=== PATIENT | female | born 1955 | race Caucasian/White ===

== ENCOUNTER → 2018-08-05 14:37 | Outpatient (CLI) | payer OTHER, SELFPAY ==
--- NOTE | 2018-08-05 | DI.MG.S_ITS ---
BILATERAL DIGITAL SCREENING MAMMOGRAM 3D/2D WITH CAD: 08/05/2018 CLINICAL: Routine screening. Family history of breast cancer. Comparison is made to exams dated: 10/16/2016 mammogram, 08/18/2015 mammogram, and 05/26/2014 mammogram - [facility]. There are scattered fibroglandular elements in both breasts. Current study was also evaluated with a Computer Aided Detection (CAD) system. There is a benign biopsy clip in the left breast. No significant masses, calcifications, or other findings are seen in either breast. There has been no significant interval change. IMPRESSION: NEGATIVE There is no mammographic evidence of malignancy. A 1 year screening mammogram is recommended. This exam was interpreted at Station ID: [id number]. NOTE: For mammograms, a report in lay terms will be sent to the patient. Approximately 15% of breast malignancies will not be visualized mammographically. In the management of a palpable breast mass, a negative mammogram must not discourage biopsy of a clinically suspicious lesion. Electronically Signed By: Kadeem valencia/joanna:08/05/2018 17:03:35 letter sent: Normal Exam ACR BI-RADS Category 1: Negative 3341F
== END ==
PROVIDERS: PCP Family Medicine; Visit Provider Family Medicine
DX: Z12.31 Encounter for screening mammogram for malignant neoplasm of breast (principal); Z80.3 Family history of malignant neoplasm of breast; Z78.0 Asymptomatic menopausal state; Z87.891 Personal history of nicotine dependence
CPT/HCPCS: 77063; 77067; 77080

== ENCOUNTER → 2018-08-20 15:52 | Outpatient (CLI) | payer OTHER, SELFPAY ==
--- NOTE | 2018-08-20 | DI.RAD.S_ITS ---
PROCEDURE: XR LUMBAR SPINE 2-3V INDICATIONS: LOW BACK PAIN TECHNIQUE: 3 views of the lumbar spine were acquired. COMPARISON: [facility], , L-SPINE 2-3 VIEWS, 02/23/2010, 15:18. FINDINGS: Bones: 5 [id number] vertebrae are present. There is trace retrolisthesis of L2 on L3, L3 on L4, grade 1 anterolisthesis of L5 on S1. This is progressive compared to prior exam at L4-5. Moderate disc and foraminal narrowing are noted at L5-S1, mildly progressive compared to prior exam. No vertebral body compression fractures. No suspicious bony lesions. Soft tissues: Overlying bowel gas pattern is normal. No suspicious soft tissue calcifications. IMPRESSION: Degenerative changes most prominent at L5-S1 with increased anterolisthesis at L4-5. Dictated by: Luli Alcazar M.D. on 08/20/2018 at 17:20 Approved by: Luli Alcazar M.D. on 08/20/2018 at 17:21
--- NOTE | 2018-08-20 | DI.RAD.S_ITS ---
PROCEDURE: XR KNEE LT 3V INDICATIONS: CATHY KNEE PAIN TECHNIQUE: 3 views of the knee were acquired. COMPARISON: [facility], , KNEE 3V RIGHT, 10/29/2007, 15:13. FINDINGS: Bones: No fractures or dislocations. No suspicious bony lesions. Mild medial minimal patellofemoral compartment narrowing. No erosions. Soft tissues: Minimal joint effusion. No suspicious soft tissue calcifications. IMPRESSION: Minimal to mild medial patellofemoral compartment narrowing suggesting early osteoarthritis. Minimal interval change. Dictated by: Luli Alcazar M.D. on 08/20/2018 at 17:19 Approved by: Luli Alcazar M.D. on 08/20/2018 at 17:20
--- NOTE | 2018-08-20 | DI.RAD.S_ITS ---
PROCEDURE: XR KNEE RT 3V INDICATIONS: right knee pain TECHNIQUE: 3 views of the knee were acquired. COMPARISON: [facility], , KNEE 3V RIGHT, 10/29/2007, 15:13. FINDINGS: Bones: No fractures or dislocations. No suspicious bony lesions. There is minimal medial patellofemoral compartment narrowing, minimally progressive compared to prior exam. No erosions. Soft tissues: No joint effusion. No suspicious soft tissue calcifications. IMPRESSION: Minimal early degenerative change of the medial patellofemoral compartments as above. Dictated by: Luli Alcazar M.D. on 08/20/2018 at 17:21 Approved by: Luli Alcazar M.D. on 08/20/2018 at 17:22
== END ==
PROVIDERS: PCP Family Medicine; Visit Provider Family Medicine
DX: M54.5 Low back pain (principal); M25.562 Pain in left knee; M25.561 Pain in right knee; M47.817 Spondylosis without myelopathy or radiculopathy, lumbosacral region; M43.16 Spondylolisthesis, lumbar region
CPT/HCPCS: 72100; 73562

== ENCOUNTER → 2020-11-10 14:35 | Outpatient (CLI) | payer OTHER, SELFPAY ==
--- NOTE | 2020-11-10 | DI.MG.S_ITS ---
BILATERAL DIGITAL SCREENING MAMMOGRAM 3D/2D WITH CAD: 11/10/2020 CLINICAL: Routine screening. Family history of breast cancer. Comparison is made to exams dated: 08/05/2018 mammogram, 10/16/2016 mammogram, and 08/18/2015 mammogram - [facility]. There are scattered fibroglandular elements in both breasts. Current study was also evaluated with a Computer Aided Detection (CAD) system. There is a biopsy clip in the left breast. No significant masses, calcifications, or other findings are seen in either breast. There has been no significant interval change. IMPRESSION: NEGATIVE There is no mammographic evidence of malignancy. A 1 year screening mammogram is recommended. This exam was interpreted at Station ID: [id number]. NOTE: For mammograms, a report in lay terms will be sent to the patient. Approximately 15% of breast malignancies will not be visualized mammographically. In the management of a palpable breast mass, a negative mammogram must not discourage biopsy of a clinically suspicious lesion. Electronically Signed By: Devaughn Fraga M.D., jr/joanna:11/10/2020 16:15:40 letter sent: Normal Exam ACR BI-RADS Category 1: Negative 3341F
== END ==
PROVIDERS: PCP Family Medicine; Referring Provider Family Medicine; Visit Provider Family Medicine
DX: Z12.31 Encounter for screening mammogram for malignant neoplasm of breast (principal); Z80.3 Family history of malignant neoplasm of breast
CPT/HCPCS: 77063; 77067

== ENCOUNTER → 2022-02-23 09:22 | Outpatient (CLI) | payer OTHER, SELFPAY ==
--- NOTE | 2022-02-23 | DI.MG.S_ITS ---
BILATERAL DIGITAL SCREENING MAMMOGRAM 3D/2D WITH CAD: 02/23/2022 CLINICAL: Routine screening. Family history of breast cancer. Comparison is made to exams dated: 11/10/2020 mammogram, 08/05/2018 mammogram, 10/16/2016 mammogram, and 08/18/2015 mammogram - [facility]. There are scattered areas of fibroglandular density in both breasts (category b / 25%-50% glandular tissue). Current study was also evaluated with a Computer Aided Detection (CAD) system. There is a biopsy clip in the left breast. No significant masses, calcifications, or other findings are seen in either breast. There has been no significant interval change. IMPRESSION: NEGATIVE There is no mammographic evidence of malignancy. A 1 year screening mammogram is recommended. Based on the Tyrer Cuzick model (a risk assessment model) the patient's lifetime risk is 14.5% and her 10 year risk is 7.8%. According to the ACR, ACS, and NCCN guidelines, an annual breast MRI exam along with mammogram is recommended if the patient's lifetime risk is 20% or greater. This exam was interpreted at Station ID: [id number]. NOTE: For mammograms, a report in lay terms will be sent to the patient. Approximately 15% of breast malignancies will not be visualized mammographically. In the management of a palpable breast mass, a negative mammogram must not discourage biopsy of a clinically suspicious lesion. Electronically Signed By: Christiano paulino/joanna:02/23/2022 09:41:29 letter sent: Normal Exam ACR BI-RADS Category 1: Negative 3341F
== END ==
PROVIDERS: PCP Family Medicine; Referring Provider Family Medicine; Visit Provider Family Medicine
DX: Z12.31 Encounter for screening mammogram for malignant neoplasm of breast (principal); Z78.0 Asymptomatic menopausal state; Z80.3 Family history of malignant neoplasm of breast; Z13.820 Encounter for screening for osteoporosis
CPT/HCPCS: 77063; 77067; 77080

== ENCOUNTER → 2023-03-05 10:07 | Outpatient (CLI) | payer OTHER, SELFPAY ==
--- NOTE | 2023-03-05 | DI.RAD.S_ITS ---
PROCEDURE: XR CHEST 2V INDICATIONS: ACUTE COUGH TECHNIQUE: 2 views of the chest were acquired. COMPARISON: [facility], , CHEST 2 VIEW, 06/24/2013, 14:10. FINDINGS: Surgical changes and devices: None. Lungs and pleura: Bibasilar atelectasis and infiltrate is greater on the left Mediastinum: Mediastinal contours are normal. Heart size is normal. Bones and chest wall: No suspicious bony abnormalities. Soft tissues appear unremarkable. IMPRESSION: Minimal bibasilar atelectasis and or infiltrate, greater on the left Approved by: Marcial Morales M.D. on 03/05/2023 at 19:42
[2023-03-05 13:35] LABS: COVID-19 CEPHEID 4-PLEX PCR Negative (Negative); Influenza A - CEPHEID Flu A NEGATIVE (NEGATIVE); Influenza B - CEPHEID Flu B NEGATIVE (NEGATIVE); Respiratory Syncytial Virus Negative (Negative)
== END ==
PROVIDERS: PCP Family Medicine; Referring Provider Family Medicine; Visit Provider Family Medicine
DX: R05.1 Acute cough (principal)
CPT/HCPCS: 0241U; 71046

== ENCOUNTER → 2023-04-06 10:01 | Outpatient (CLI) | payer OTHER, SELFPAY ==
--- NOTE | 2023-04-06 10:03 | DI.RAD.S_ITS ---
PROCEDURE: XR CHEST 2V INDICATIONS: COUGH TECHNIQUE: 2 views of the chest were acquired. COMPARISON: None available at time of dictation FINDINGS: Surgical changes and devices: None. Lungs and pleura: Lungs are clear. No pleural effusions or pneumothorax. Mediastinum: Mediastinal contours are normal. Heart size is normal. Bones and chest wall: No suspicious bony abnormalities. Soft tissues appear unremarkable. IMPRESSION: No acute cardiopulmonary abnormality is seen. Dictated by: Dion Cummings M.D. on 04/06/2023 at 12:33 Approved by: Dion Cummings M.D. on 04/06/2023 at 12:34
--- NOTE | 2023-04-06 10:03 | DI.MG.S_ITS ---
BILATERAL DIGITAL SCREENING MAMMOGRAM 3D/2D WITH CAD: 04/06/2023 CLINICAL: Routine screening. Family history of breast cancer. Comparison is made to exams dated: 02/23/2022 mammogram, 11/10/2020 mammogram, and 08/05/2018 mammogram - [facility]. There are scattered areas of fibroglandular density in both breasts (category b / 25%-50% glandular tissue). Current study was also evaluated with a Computer Aided Detection (CAD) system. There is a biopsy clip in the left breast. No significant masses, calcifications, or other findings are seen in either breast. There has been no significant interval change. IMPRESSION: NEGATIVE There is no mammographic evidence of malignancy. A 1 year screening mammogram is recommended. Based on the Tyrer Cuzick model (a risk assessment model) the patient's lifetime risk is 13.7% and her 10 year risk is 7.7%. According to the ACR, ACS, and NCCN guidelines, an annual breast MRI exam along with mammogram is recommended if the patient's lifetime risk is 20% or greater. This exam was interpreted at Station ID: [id number]. NOTE: For mammograms, a report in lay terms will be sent to the patient. Approximately 15% of breast malignancies will not be visualized mammographically. In the management of a palpable breast mass, a negative mammogram must not discourage biopsy of a clinically suspicious lesion. Electronically Signed By: Kadeem valencia/joanna:04/06/2023 17:47:42 letter sent: Normal Exam ACR BI-RADS Category 1: Negative 3341F
== END ==
LOC: MAMMO 10:02
PROVIDERS: PCP Family Medicine; Referring Provider Family Medicine; Visit Provider Family Medicine
DX: Z12.31 Encounter for screening mammogram for malignant neoplasm of breast (principal); Z80.3 Family history of malignant neoplasm of breast; R92.323 Mammographic fibroglandular density, bilateral breasts; J18.9 Pneumonia, unspecified organism; M30.1 Polyarteritis with lung involvement [Churg-Strauss]; D72.18 Eosinophilia in diseases classified elsewhere; R05.1 Acute cough
CPT/HCPCS: 71046; 77063; 77067

== ENCOUNTER → 2023-10-02 14:00 | Outpatient (CLI) | payer OTHER, SELFPAY ==
[2023-10-02 14:32] LABS: Estimated Glomerular Filt Rate > 60 mL/min (>60)
--- NOTE | 2023-10-02 16:00 | DI.CT.S_ITS ---
PROCEDURE: CT CHEST W CON INDICATIONS: Eosinophilia in diseases classified elsewhere TECHNIQUE: After the administration of intravenous contrast, 5 mm thick sections acquired from the pulmonary apices to the posterior costophrenic angles. 1 mm axial lung, 5 mm thick coronal and sagittal reformats and 7 mm axial MIP were acquired. For radiation dose reduction, the following was used: automated exposure control, adjustment of mA and/or kV according to patient size. COMPARISON: None. FINDINGS: Image quality: Diagnostic. Lower Neck: No enlarged lymph nodes. Thyroid: Normal CT appearance. Axillae: No enlarged lymph nodes. Chest Wall: Unremarkable. Bones: Unremarkable. Lungs and Pleura: Mild bilateral central bronchiectasis and most extensive in the right lower lobe where there is also moderate bronchial wall thickening and multifocal bronchial stenoses. Right posterior lower lung micro nodules are present dependently. There is confluence in the posterior sulcus. Minor tree-in-bud nodularity is seen anteriorly in the right upper lobe at a mid lung level as well as left costophrenic sulcus with trace atelectatic change. No focal macro nodules, acute ground-glass opacities or dense alveolar consolidations. No pleural effusion or pleural calcification. Heart: Heart size is normal. No pericardial effusion. Thoracic Vessels: The aorta and pulmonary arteries demonstrate normal size. Mediastinum and Maria C: There is mediastinal adenopathy with the largest lymph node in the precarinal region measuring 1.6 cm. Smaller subcarinal lymph nodes. Right hilar adenopathy. Esophagus: No wall thickening. No hiatal hernia. Upper Abdomen: Visualized upper abdomen solid organs and bowel loops appear normal. 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 Minor tree-in-bud opacity in the right upper and left lower lobes may be infection, chronic inflammation, or chronic granulomatous disease. Mild diffuse bronchiectasis. Mediastinal and right hilar adenopathy. Dictated by: Elisha Schmitz M.D. on 10/02/2023 at 18:26 Approved by: Elisha Schmitz M.D. on 10/02/2023 at 18:37
== END ==
LOC: CT 14:01
PROVIDERS: Radiology Diagnostic Radiology; PCP Family Medicine; Referring Provider Family Medicine; Visit Provider Family Medicine
DX: J82.89 Other pulmonary eosinophilia, not elsewhere classified (principal); M35.00 Sjogren syndrome, unspecified; D72.18 Eosinophilia in diseases classified elsewhere; M30.1 Polyarteritis with lung involvement [Churg-Strauss]; J30.1 Allergic rhinitis due to pollen; R59.0 Localized enlarged lymph nodes; J47.9 Bronchiectasis, uncomplicated
CPT/HCPCS: 36415; 71260; 82565; Q9967

== ENCOUNTER → 2024-06-23 10:38 | Outpatient (CLI) | payer BC, SELFPAY ==
--- NOTE | 2024-06-23 10:41 | DI.RAD.S_ITS ---
PROCEDURE: XR KNEE LT 3V INDICATIONS: KNEE PAIN TECHNIQUE: 3 views of the knee were acquired. COMPARISON: [facility], CR, XR KNEE RT 3V, 08/20/2018, 16:01. FINDINGS: Bones: There are no osseous abnormalities. Joints: The tibialfemoral and patellofemoral joints show mild degeneration. Soft tissues: Normal IMPRESSION: Mild degeneration. . Dictated by: Celso Villalobos M.D. on 06/24/2024 at 10:48 Approved by: Celso Villalobos M.D. on 06/24/2024 at 10:48
== END ==
PROVIDERS: PCP Family Medicine; Referring Provider Family Medicine; Visit Provider Family Medicine
DX: M17.12 Unilateral primary osteoarthritis, left knee (principal); M25.562 Pain in left knee; G89.29 Other chronic pain
CPT/HCPCS: 73562

== ENCOUNTER → 2024-09-03 14:26 | Outpatient (CLI) | payer BC, SELFPAY ==
--- NOTE | 2024-09-03 14:29 | DI.MG.S_ITS ---
MM screening mammo BI: 09/03/2024. BI-RADS: 1 CLINICAL: 69-year old female for bilateral screening mammogram. Tyrer-Cuzick lifetime risk of 7.2%. Current reported family history of breast cancer: father. PRIOR EXAMS 04/06/2023, 02/23/2022, 11/10/2020, 08/05/2018. MAMMOGRAPHY TECHNIQUE: 2D and 3D (tomosynthesis) digital mammographic views obtained, with additional images as needed for full coverage. Current study was also evaluated with a Computer Aided Detection (CAD) system. DENSITY B. There are scattered areas of fibroglandular density. MAMMOGRAPHY FINDINGS Bilateral: No suspicious mass, asymmetry, microcalcification, or other abnormality seen. IMPRESSION: * No evidence of malignancy. RECOMMENDATIONS Bilateral * Annual screening mammography. OVERALL ASSESSMENT CATEGORY BI-RADS-1: Negative. The [employer] recommends annual screening mammography beginning at age 40 for women with average risk of breast cancer. ELECTRONICALLY SIGNED: Hunter Rao M.D. on 09/04/2024 at 08:10:27 AM PT Interpreting Station ID: [id number]
[2024-09-03 15:26] LABS: Add Manual Diff / Slide Review NO; Basophils Absolute Auto 0 /uL (0-100); Basophils Percent Auto 0.3 % (0-2); Eosinophils Absolute Auto 100 /uL (0-450); Eosinophils Percent Auto 0.5 % (2-4); Hematocrit 41.3 % (36-46); Lymphocytes Absolute Auto 2500 /uL (1100-4500); Lymphocytes Percent Auto 15.7 % (25-40); Mean Corpuscular HGB Conc 33.8 % (30-36); Mean Corpuscular Hemoglobin 31.2 PG (26-34); Mean Corpuscular Volume 92.5 fL (80-100); Monocytes Absolute Auto 1300 /uL (0-900); Monocytes Percent Auto 8.2 % (3-14); Neutrophils Absolute Auto 12200 /uL (1500-7000); Neutrophils Percent Auto 75.3 % (50-75); Platelet Count 707 X10^3/uL (150-400); Red Blood Cell Count 4.47 X10^6/uL (4.0-5.2); Red Cell Distribution Width 13.1 % (11.6-14.8); White Blood Cell Count 16.2 X10^3/uL (4.5-11.0)
== END ==
LOC: LAB 14:27
PROVIDERS: PCP Family Medicine; Referring Provider Family Medicine; Visit Provider Family Medicine
DX: J32.0 Chronic maxillary sinusitis (principal); J82.89 Other pulmonary eosinophilia, not elsewhere classified; M30.1 Polyarteritis with lung involvement [Churg-Strauss]; D72.18 Eosinophilia in diseases classified elsewhere; D72.829 Elevated white blood cell count, unspecified
CPT/HCPCS: 36415; 77063; 77067; 85025

== ENCOUNTER → 2025-03-11 09:39 | Outpatient (CLI) | payer BC, SELFPAY ==
--- NOTE | 2025-03-11 09:42 | DI.RAD.S_ITS ---
PROCEDURE: XR DEXA AXIAL SKELETON INDICATIONS: Osteoporosis Screening COMPARISON: [facility], CR, XR DEXA AXIAL SKELETON, 02/23/2022, 10:05. [facility], CR, XR DEXA AXIAL SKELETON, 08/05/2018, 15:06. FINDINGS: Lumbar Spine: Bone mineral density 0.932 g/cm2, T score -1.0, prior T-score of -0.5. Left Femoral Neck: Bone mineral density 0.781 g/cm2, T score -0.6. Left Hip: Bone mineral density 0.774 g/cm2, T score -1.4, prior T-score of -0.4. Fracture Risk Calculation (when applicable): 10-year fracture risk of a major osteoporotic fracture 8.1 percent and of a hip fracture 0.7 percent. (T score greater or equal to -1.0 to: NORMAL) (T score from -1.1 to -2.4: OSTEOPENIA) (T score less than or equal to -2.5: OSTEOPOROSIS) IMPRESSION: Osteopenia. Comparison cannot be made to the prior exam due to differences in technique, however the prior T-scores are reported. Follow-up guidelines as follows: Osteoporosis: Consider a repeat DEXA and Vertebral Fracture Assessment (VFA) exam in 2 years or sooner if medically necessary, to reassess this patient's status. Osteopenia: Consider a repeat DEXA in 2-3 years to reassess this patient's status, or if there is a new clinical indication. Normal: Consider a repeat DEXA in 5 years or sooner, or if there is a new clinical indication. All treatment decisions require clinical judgment and consideration of individual patient factors, including patient preferences, comorbidities, previous drug use, risk factors not captured in the FRAX model (e.g., frailty, falls, vitamin D deficiency, increased bone turnover, interval significant decline in bone density ) and possible under- or over-estimation of fracture risk by FRAX. In addition, the NOF Guide recommends that FDA-approved medical therapies be considered in postmenopausal women and men age >= 50 years with a: * Hip or vertebral (clinical or morphometric) fracture * T-score of <=-2.5 at the spine or hip * Ten-year fracture probability by FRAX of >= 3% for hip fracture or >=20% for major osteoporotic fracture. Dictated by: Dawit Nelson M.D. on 03/11/2025 at 15:56 Approved by: Dawit Nelson M.D. on 03/11/2025 at 15:57
--- NOTE | 2025-03-11 09:43 | DI.RAD.S_ITS ---
PROCEDURE: XR LUMBAR SPINE 2-3V INDICATIONS: BACK PAIN TECHNIQUE: 3 views of the lumbar spine were acquired. COMPARISON: [facility], , XR LUMBAR SPINE 2-3V, 08/20/2018, 16:01. FINDINGS: Bones: 5 [id number] vertebrae are present. Mild lumbar dextroscoliosis centered at L2. Grade 1 retrolisthesis of L2 on L3. Grade 1 anterolisthesis of L4 on L5. Multilevel disc space narrowing, moderate at L2-3, severe at L5-S1. Multilevel inferior lumbar predominant facet arthrosis.. No vertebral body compression fractures. No suspicious bony lesions. Soft tissues: Overlying bowel gas pattern is normal. No suspicious soft tissue calcifications. IMPRESSION: Grade 1 retrolisthesis of L2 on L3 and anterolisthesis of L4 on L5. Multilevel spondylosis which reaches severe at L5-S1 with inferior lumbar predominant multilevel facet arthrosis. Dictated by: Dawit Nelson M.D. on 03/11/2025 at 15:57 Approved by: Dawit Nelson M.D. on 03/11/2025 at 15:58
--- NOTE | 2025-03-11 09:43 | DI.RAD.S_ITS ---
PROCEDURE: XR THORACIC SPINE 3V INDICATIONS: BACK PAIN TECHNIQUE: 3 views of the thoracic spine were acquired. COMPARISON: None. FINDINGS: Bones: No fractures or dislocations. No suspicious bony lesions. 12 pairs of ribs are noted, and appear intact where visualized. Inferior thoracic to lumbar dextrocurvature centered at the thoracolumbar junction. Soft tissues: No paravertebral stripe thickening. IMPRESSION: No compression deformity. Inferior thoracic to lumbar dextro scoliosis. Dictated by: Dawit Nelson M.D. on 03/11/2025 at 15:59 Approved by: Dawit Nelson M.D. on 03/11/2025 at 15:59
== END ==
PROVIDERS: PCP Family Medicine; Referring Provider Family Medicine; Visit Provider Family Medicine
DX: M85.852 Other specified disorders of bone density and structure, left thigh (principal); M43.16 Spondylolisthesis, lumbar region; M47.817 Spondylosis without myelopathy or radiculopathy, lumbosacral region; M47.816 Spondylosis without myelopathy or radiculopathy, lumbar region; M41.9 Scoliosis, unspecified; M54.6 Pain in thoracic spine; M54.50 Low back pain, unspecified
CPT/HCPCS: 72072; 72100; 77080